=== PATIENT | female | born 1945 | race Caucasian/White ===

== ENCOUNTER 2019-06-21 09:48 | Outpatient (REF) | payer MEDICARE, OTHER, SELFPAY ==
[2019-06-21 21:19] LABS: HGB 12.7 g/dL (12.0-15.5); Mean Corpuscular Hemoglobin 30.3 pg (27.0-33.0); Mean Corpuscular Volume 97.9 fL (80-95); Mean Platelet Volume 10.5 fL (8.0-11.0); Platelet Count 347 x1000/uL (130-400); RBC 4.19 m/cumm (4.00-5.20); RBC Distribution Width 14.6 % (11.7-14.6); White Blood Cell Count 4.46 k/cumm (4.4-10.8)
[2019-06-21 21:39] LABS: Anion Gap 8.2 mmol/L (3-11); BUN 19 mg/dL (7-18); CO2 28.8 mmol/L (21.0-32.0); CREATININE 1.12 mg/dL (0.55-1.02); Calcium 9.6 mg/dL (8.5-10.1); Calculated LDL 126 mg/dL; Chloride 107 mmol/L (98-107); Cholesterol 217 mg/dL (50-200); Estimated GFR 47.82 (mL/min/1.73m2); Glucose 101 mg/dL (70-100); HDL Cholesterol 76 mg/dL (40-60); Potassium 5.6 mmol/L (3.5-5.1); Sodium 144 mmol/L (136-145); TSH (W/Ref FT4) 2.94 uIU/mL (0.36-3.74); Triglyceride 78 mg/dL (30-150)
== END 2019-06-21 10:08 ==
LOC: NCHCN 09:48
PROVIDERS: PCP Family Medicine; Visit Provider Family Medicine
DX: I10 Essential (primary) hypertension (principal); R53.83 Other fatigue
CPT/HCPCS: 80048; 80061; 85027; 84443

== ENCOUNTER 2020-06-23 08:08 | Outpatient (REF) | payer MEDICARE, OTHER, SELFPAY ==
[2020-06-23 22:06] LABS: BUN 24 mg/dL (7-18); CREATININE 1.42 mg/dL (0.55-1.02); Calcium 8.9 mg/dL (8.5-10.1); Chloride 106 mmol/L (98-107); Estimated GFR 36.26 (mL/min/1.73m2); Glucose 87 mg/dL (74-106); Potassium 4.5 mmol/L (3.5-5.1); Sodium 142 mmol/L (136-145)
[2020-06-23 22:21] LABS: Hemoglobin A1C 5.9 % (<5.7)
== END 2020-06-23 08:28 ==
LOC: NCHCN 08:08
PROVIDERS: PCP Family Medicine; Visit Provider Family Medicine
DX: N18.2 Chronic kidney disease, stage 2 (mild) (principal); I10 Essential (primary) hypertension; R73.09 Other abnormal glucose; Z83.3 Family history of diabetes mellitus
CPT/HCPCS: 80048; 83036

== ENCOUNTER 2020-09-17 20:23 | Outpatient (REF) | payer MEDICARE, OTHER, SELFPAY ==
[2020-09-17 22:15] LABS: Anion Gap 5.6 mmol/L (3-11); BUN 17 mg/dL (7-18); CO2 27.4 mmol/L (21.0-32.0); CREATININE 1.28 mg/dL (0.55-1.02); Chloride 108 mmol/L (98-107); Estimated GFR 40.88 (mL/min/1.73m2); Glucose 95 mg/dL (74-106); Potassium 4.3 mmol/L (3.5-5.1); Sodium 141 mmol/L (136-145)
[2020-09-17 22:22] LABS: Hemoglobin A1C 5.6 % (<5.7)
== END 2020-09-17 20:43 ==
LOC: NCHCN 20:23
PROVIDERS: PCP Family Medicine; Visit Provider Registered Nurse
DX: R73.03 Prediabetes (principal); N18.30 Chronic kidney disease, stage 3 unspecified
CPT/HCPCS: 80048; 83036

== ENCOUNTER 2021-08-04 14:23 | Outpatient (REF) | payer MEDICARE, OTHER, SELFPAY ==
[2021-08-04 15:50] LABS: Hemoglobin A1C 5.6 % (<5.7)
[2021-08-04 16:17] LABS: Anion Gap 10.3 mmol/L (3-11); BUN 26 mg/dL (7-18); CO2 26.7 mmol/L (21.0-32.0); CREATININE 1.3 mg/dL (0.55-1.02); Calculated LDL 116 mg/dL (<100); Chloride 107 mmol/L (98-107); Cholesterol 208 mg/dL (<200); Estimated GFR 40.04 (mL/min/1.73m2); Glucose 95 mg/dL (74-106); HDL Cholesterol 82 mg/dL (40-60); Potassium 4.7 mmol/L (3.5-5.1); Sodium 144 mmol/L (136-145); Triglyceride 54 mg/dL (<150)
[2021-08-04 16:39] LABS: COMMENT (LAB VIEW ONLY) 139.07 mg/dL
== END 2021-08-04 14:24 | disposition home or self-care (01) ==
LOC: NCHCN 14:23
PROVIDERS: PCP Family Medicine; Visit Provider Family Medicine
DX: R73.03 Prediabetes (principal); N18.30 Chronic kidney disease, stage 3 unspecified; E66.9 Obesity, unspecified
CPT/HCPCS: 80048; 80061; 82043; 82570; 83036

== ENCOUNTER 2022-08-03 17:07 | Outpatient (REF) | payer MEDICARE, OTHER, SELFPAY ==
[2022-08-03 21:30] LABS: Anion Gap 7.3 mmol/L (3-11); BUN 29 mg/dL (7-18); CO2 27.7 mmol/L (21.0-32.0); CREATININE 1.8 mg/dL (0.55-1.02); Calcium 9.1 mg/dL (8.5-10.1); Chloride 107 mmol/L (98-107); Estimated GFR 29.02 (mL/min/1.73m2); Glucose 104 mg/dL (74-106); Potassium 4.8 mmol/L (3.5-5.1); Sodium 142 mmol/L (136-145)
== END 2022-08-03 17:08 | disposition home or self-care (01) ==
LOC: NCHCN 17:07
PROVIDERS: PCP Family Medicine; Visit Provider Family Medicine
DX: I10 Essential (primary) hypertension (principal)
CPT/HCPCS: 80048

== ENCOUNTER 2023-01-30 18:20 | Outpatient (REF) | payer MEDICARE, OTHER, SELFPAY ==
[2023-01-30 21:38] LABS: Anion Gap 6.3 mmol/L (3-11); BUN 27 mg/dL (7-18); CO2 26.7 mmol/L (21.0-32.0); CREATININE 1.5 mg/dL (0.55-1.02); Calcium 9.2 mg/dL (8.5-10.1); Calculated LDL 83 mg/dL (<100); Chloride 107 mmol/L (98-107); Cholesterol 188 mg/dL (<200); Estimated GFR 35.89 (mL/min/1.73m2); Glucose 98 mg/dL (74-106); HDL Cholesterol 97 mg/dL (40-60); Potassium 4.8 mmol/L (3.5-5.1); Sodium 140 mmol/L (136-145); Triglyceride 41 mg/dL (<150)
== END 2023-01-30 18:21 | disposition home or self-care (01) ==
LOC: NCHCN 18:20
PROVIDERS: PCP Family Medicine; Visit Provider Family Medicine
DX: E78.5 Hyperlipidemia, unspecified (principal); I10 Essential (primary) hypertension
CPT/HCPCS: 80048; 80061

== ENCOUNTER 2024-01-25 20:32 | Outpatient (REF) | payer MEDICARE, OTHER, SELFPAY ==
[2024-01-25 21:05] LABS: BUN 32 mg/dL (7-18); CREATININE 1.4 mg/dL (0.55-1.02); Calcium 9.3 mg/dL (8.5-10.1); Chloride 108 mmol/L (98-107); Estimated GFR 38.75 (mL/min/1.73m2); Glucose 131 mg/dL (74-106); Potassium 4.8 mmol/L (3.5-5.1); Sodium 142 mmol/L (136-145)
== END 2024-01-25 20:33 | disposition home or self-care (01) ==
LOC: NCHCN 20:32
PROVIDERS: PCP Family Medicine; Visit Provider Family Medicine
DX: N18.4 Chronic kidney disease, stage 4 (severe) (principal)
CPT/HCPCS: 80048

== ENCOUNTER 2024-01-29 16:09 | Outpatient (REF) | payer MEDICARE, OTHER, SELFPAY ==
[2024-01-29 21:21] LABS: Abs Immature Grans 0.02 10^3/uL (0.0-0.06); Absolute Basophil Count 0.04 10^3/uL (0.0-0.2); Absolute Eosinophil Count 0.73 10^3/uL (0.0-0.7); Absolute Lymphocyte Count 1.46 10^3/uL (1.2-3.4); Absolute Monocyte Count 0.87 10^3/uL (0.1-0.8); Absolute Neutrophil Count 2.78 10^3/uL (1.2-6.7); Basophils % 0.7; Eosinophils % 12.4; HCT 33.2 % (36.0-46.0); Immature Grans % 0.3; Lymphocytes % 24.7; MCHC 30.1 % (32.0-36.0); MCV 100 fL (80-95); MPV 10.3 fL (8.0-11.0); Monocytes % 14.7; Neutrophils % 47.2; Platelet Count 336 10^3/uL (130-400); RBC 3.33 10^6/uL (3.93-5.22); RDW 14.2 % (11.7-14.6); RDW-SD 52.1 fL
[2024-01-29 21:43] LABS: COMMENT (LAB VIEW ONLY) 91.82 mg/dL; Microalb ug/mg Crea 4.8 ug/mg Cr
[2024-01-29 21:44] LABS: Ferritin 44 ng/mL (8-252); TSH (W/Ref FT4) 2.53 uIU/mL (0.36-3.74)
[2024-01-29 22:02] LABS: Iron 61 ug/dL (50-170); Total Iron Binding Capacity 315 ug/dL (250-450); Transferrin Sat 19 % (15-50)
== END 2024-01-29 16:10 | disposition home or self-care (01) ==
LOC: NCHCN 16:09
PROVIDERS: PCP Family Medicine; Visit Provider Family Medicine
DX: R53.83 Other fatigue (principal); R06.09 Other forms of dyspnea; N18.9 Chronic kidney disease, unspecified
CPT/HCPCS: 82043; 82570; 82728; 83540; 83550; 84443; 85025

== ENCOUNTER 2024-02-08 13:53 | Outpatient (REF) | payer MEDICARE, OTHER, SELFPAY ==
[2024-02-08 15:00] LABS: Folate 16.4 ng/mL (8.6-20.0); Vitamin B12 294 pg/mL (193-986)
== END 2024-02-08 13:54 | disposition home or self-care (01) ==
LOC: NCHCN 13:53
PROVIDERS: PCP Family Medicine; Visit Provider Family Medicine
DX: D64.9 Anemia, unspecified (principal)
CPT/HCPCS: 82607; 82746

== ENCOUNTER 2025-02-05 19:51 | Outpatient (REF) | payer MEDICARE, OTHER, SELFPAY ==
[2025-02-05 22:27] LABS: ESR 21 mm/hr (0-30)
[2025-02-05 22:28] LABS: HCT 34.7 % (36.0-46.0); HGB 10.7 g/dL (11.2-15.7); MCHC 30.8 % (32.0-36.0); MCV 97 fL (80-95); MPV 11.1 fL (8.0-11.0); Platelet Count 290 10^3/uL (130-400); RBC 3.57 10^6/uL (3.93-5.22); RDW 14.6 % (11.7-14.6); RDW-SD 51.9 fL; WBC 6.23 10^3/uL (4.4-10.8)
[2025-02-05 22:44] LABS: ALT 26 U/L (14-59); AST 24 U/L (15-37); Albumin 4.2 g/dL (3.4-5.0); Alkaline Phosphatase 63 U/L (46-116); Anion Gap 9.1 mmol/L (3-11); BUN 42 mg/dL (7-18); Bilirubin, Total 0.2 mg/dL (0.2-1.0); CO2 21.9 mmol/L (21.0-32.0); CREATININE 1.8 mg/dL (0.55-1.02); Calcium 9.7 mg/dL (8.5-10.1); Calculated LDL 69 mg/dL (<100); Chloride 110 mmol/L (98-107); Cholesterol 169 mg/dL (<200); Estimated GFR 28.48 (mL/min/1.73m2); Glucose 99 mg/dL (74-106); HDL Cholesterol 91 mg/dL (>or=50); Potassium 4.8 mmol/L (3.5-5.1); Sodium 141 mmol/L (136-145); Total Protein 7.9 g/dL (6.4-8.2); Triglyceride 49 mg/dL (<150)
[2025-02-05 22:56] LABS: C-Reactive Protein < 0.50 mg/dL (<or=0.5)
== END 2025-02-05 19:52 | disposition home or self-care (01) ==
LOC: NCHCN 19:51
PROVIDERS: PCP Family Medicine; Visit Provider Family Medicine
DX: I10 Essential (primary) hypertension (principal); D64.9 Anemia, unspecified; R53.83 Other fatigue
CPT/HCPCS: 80053; 80061; 85027; 85652; 85045; 86140

== ENCOUNTER 2025-02-10 14:18 | Outpatient (REF) | payer MEDICARE, OTHER, SELFPAY ==
[2025-02-11 19:02] LABS: COMMENT (LAB VIEW ONLY) 62.23 mg/dL; Microalb ug/mg Crea 4.8 ug/mg Cr
== END 2025-02-10 14:19 | disposition home or self-care (01) ==
LOC: NCHCN 14:18
PROVIDERS: PCP Family Medicine; Visit Provider Family Medicine
DX: N18.4 Chronic kidney disease, stage 4 (severe) (principal)
CPT/HCPCS: 82043; 82570